=== PATIENT | male | born 1930 | race Caucasian/White ===

== ENCOUNTER → 2016-10-30 | Outpatient (CLI) | payer MEDICARE, BC ==
[~2016-10-30] MED LIST: REGADENOSON 0.4 MG/5 ML SYRINGE ONE
== END | disposition home or self-care (01) ==
LOC: CFH 08:53
PROVIDERS: ATTEND Internal Medicine Cardiovascular Disease
DX: Z01.810 Encounter for preprocedural cardiovascular examination (principal); Z95.1 Presence of aortocoronary bypass graft; I25.10 Atherosclerotic heart disease of native coronary artery without angina pectoris; I25.89 Other forms of chronic ischemic heart disease
CPT/HCPCS: 78452; 93017; A9502; J2785

== ENCOUNTER 2018-09-12 21:27 | Inpatient (IN) | payer MEDICARE, BC ==
[~2018-09-12] VITALS: Ht 172.7 cm; Wt 82.7 kg
[~2018-09-12 21:27] MED LIST changes: +AMOX1TAB12 PO; +ASPI-650 PO; +ATOR40TA78 PO; +CARV6.2512 PO; +DOXY100T PO; +DULO30CA2 PO; +ESOM40CA PO; +FURO10SO PO; +GABA300C10 PO; +GLIM1TAB2 PO; +GUAI200T3 PO; +HYDR-3622 PO; +LISI5TAB7 PO; +LOPE2CAP PO; +METF500T17 PO; +METO50TA82 PO; +OSEL75CA PO; +POTA20PA25 PO; -REGADENOSON 0.4 MG/5 ML SYRINGE ONE; +SPIR25TA PO; +TRIA0.25 PO
[2018-09-12 22:18] LABS: BASOPHILS # (AUTO) 0.04 x10^3/uL (0-0.1); BASOPHILS % (AUTO) 0 % (0-1); EOSINOPHILS # (AUTO) 0.19 x10^3/uL (0-0.4); EOSINOPHILS % (AUTO) 2 % (1-7); LYMPHOCYTES # (AUTO) 1.05 x10^3/uL (1-3.4); LYMPHOCYTES % (AUTO) 12 % (22-44); MD NO; MEAN CORPUSCULAR HEMOGLOBIN 32.9 pg (27.5-34.5); MEAN CORPUSCULAR HGB CONC 34.1 g/dL (33.2-36.2); MEAN CORPUSCULAR VOLUME 96.5 fL (81-97); MEAN PLATELET VOLUME 9.4 fL (7.4-10.4); MONOCYTES # (AUTO) 0.52 x10^3/uL (0.2-0.8); MONOCYTES % (AUTO) 6 % (2-9); NEUTROPHILS # (AUTO) 7.27 x10^3/uL (1.8-6.8); NEUTROPHILS % (AUTO) 80 % (42-75); PLATELET COUNT 156 x10^3/uL (130-400); RED BLOOD COUNT 3.59 x10^6/uL (4.38-5.82); RED CELL DISTRIBUTION WIDTH 13.7 % (9.4-14.8)
[2018-09-12] MEDS ORDERED: PARO30TA3 PO (22:23)
[2018-09-12] MEDS ORDERED: TRAZ-137 PO (22:24)
[2018-09-12 22:25] LABS: ALANINE AMINOTRANSFERASE 22 U/L (12-78); ALBUMIN 3.8 g/dL (3.4-5.0); ANION GAP 6 mmol/L (5-15); CALCIUM 8.3 mg/dL (8.5-10.1); CHLORIDE 100 mmol/L (98-107); CREATININE 2.71 mg/dL (0.7-1.3)
--- NOTE | 2018-09-12 22:25 | NUR ---
PT WITH LOW BP. PT DENIED ANY CHEST PAIN, DIZZINESS, NAUSEA AT THIS TIME. IV STARTED. PT IN HOSPITAL GOWN. LABS DRAWN OFF IV START.
[2018-09-12 22:29] LABS: ALKALINE PHOSPHATASE 113 U/L (45-117); BILIRUBIN,TOTAL 0.6 mg/dL (0.2-1.0); TOTAL PROTEIN 6.7 g/dL (6.4-8.2); TROPONIN I < 0.015 ng/mL (0.000-0.045)
[2018-09-12] MEDS ORDERED: AZITHROMYCIN 500 MG in SODIUM CHLORIDE 0.9% 250 ML IV ONE (22:30)
[2018-09-12] MEDS ORDERED: CEFTRIAXONE PMX 1GM/50ML 50 ML IV ONE (22:30)
[2018-09-12] MEDS ORDERED: CEFTRIAXONE PMX 1GM/50ML 50 ML ONE (22:35)
[2018-09-12 22:38] LABS: MICROSCOPIC NOT IND
[2018-09-12 22:45] LABS: CULTURE INDICATED? NO
--- NOTE | 2018-09-12 22:50 | NUR ---
BLOOD CULTURES DRAWN X2. ORDERED ABX STARTED. ORDERED FLUIDS INFUSING PER ERP REQUEST. WILL CONTINUE TO MONITOR.
[2018-09-12] MEDS ORDERED: SODIUM CHLORIDE 0.9% 1,000ML IVBOLUS ONE (23:00)
[2018-09-12] MEDS ORDERED: GLUCAGON 1 MG ONE (23:32)
--- NOTE | 2018-09-12 23:40 | NUR ---
PT STATED HE WOULD NOT BE ABLE TO VOID WITH URINAL LAYING IN BED. ASSISTED PT OUT OF BED TO VOID WITH URINAL. PT REQUIRED TWO PERSON ASSIST TO HELP HIM BALANCE WHILE STANDING. PT BECAME NAUSEATED AND VOMITED. PT PLACED BACK IN BED, BILAT BEDRAILS UP. PT MEDICATED WITH ORDERED MEDS FOR BP. PT DAUGHTER AT BEDSIDE. WILL CONTINUE TO MONITOR.
[2018-09-12] MEDS ORDERED: HYDROCORTISONE 100 MG INJ. IVPush ONE (23:45)
[2018-09-13] MEDS ORDERED: GLUCAGON 1 MG IVPush ONE
--- NOTE | 2018-09-13 00:35 | NUR ---
PLEASE CALL [facility] FOR ANY INFORMATION [phone]
[2018-09-13] MEDS ORDERED: ONDANSETRON 2MG/ML, 2ML IVPush PRN (01:00)
[2018-09-13] MEDS ORDERED: NOREPINEPHRINE 4 MG in SODIUM CHLORIDE 0.9% 246 ML IV PRN (01:00)
--- NOTE | 2018-09-13 02:00 | NUR ---
ORDERED PRESSER DRIP STARTED. PT MAP 57. PER HOSPITALIST, TARGET MAP TO BE AT LEAST 60. PT RESTING CALMLY IN BED. NO REPORT OF PAIN.
--- NOTE | 2018-09-13 02:39 | NUR ---
PT MOVED TO TR02. PT BP IMPROVING. PT PLACED ON HOSPITAL BED.
--- NOTE | 2018-09-13 03:12 | NUR ---
PT RESTING CALMLY IN BED. PT TOLERATING IV INFUSION OF PRESSOR. IV SITE WITHOUT ANY REDNESS NOR PAIN. WILL CONTINUE TO MONITOR.
--- NOTE | 2018-09-13 03:13 | NUR ---
PT LEVO TURNED UP TO 3MCG/HR. PT MAP 59.
[2018-09-13] MEDS ORDERED: SODIUM CHLORIDE 0.9% 1,000 ML IV SCH (03:30)
--- NOTE | 2018-09-13 04:31 | NUR ---
PT DOZING OFF AND ON IN BED. PT ABLE TO USE URINAL IN BED. NO C/O PAIN FROM PT AT THIS TIME. PT IV PATENT WITHOUT S/S OF INFULTRATION. WILL CONTINUE TO MONITOR. PT LEVO TURNED DOWN TO 1MCG/HR.
--- NOTE | 2018-09-13 05:31 | NUR ---
PT RESTING WITH EYES CLOSED. LEVO AT 2MCG/HR, MAP AT 57. NAD AT THIS TIME. PT O2 TURNED OFF, PT SATING 98% ON RA.
[2018-09-13] MEDS ORDERED: ASPIRIN 325 MG TABLET EC ONE (05:57)
[2018-09-13] MEDS ORDERED: ONDANSETRON 2MG/ML, 2ML ONE (05:57)
[2018-09-13 06:03] LABS: TROPONIN I < 0.015 ng/mL (0.000-0.045)
[2018-09-13] MEDS: ASPIRIN 325 MG TABLET EC PO SCH (06:04)
--- NOTE | 2018-09-13 06:10 | NUR ---
PT C/O NAUSEA. LAB CAME TO DRAW BLOOD. PT MEDICATD ORDERED FOR NAUSEA. PT ABLE TO TAKE AM MEDS PO. NO C/O PAIN NOR DIZZINESS.
--- NOTE | 2018-09-13 07:02 | NUR ---
BEDSIDE REPORT TO JEFF MAYEN.
--- NOTE | 2018-09-13 07:32 | NUR ---
REC BS REPORT PT RESTING AT THIS TIME VITAL APPEAR TO BE TRENDIGN TO A NORMAL RANGE LEVO CURRENTLY RUNING A 4 PT AWAKES TO VERBAL CONTINUING TO MONITOR
--- NOTE | 2018-09-13 07:50 | NUR ---
IV SITES CHECKED NO ISSUSES NOTED IV INFUSING WELL
--- NOTE | 2018-09-13 09:26 | NUR ---
LEVO SPREAD SHEET UPDATED TO SHOW CURRENT
[2018-09-13] MEDS ORDERED: LEVOFLOXACIN/PMX 750MG/150ML 150 ML IV SCH (10:00)
--- NOTE | 2018-09-13 10:25 | NUR ---
CONTACTED DR MACIEL RE PT IV ACCESS RELATED TO LEVO INFUSION REVIEWED VS AND PT HX HE WILL ORDER A PICC LINE
[2018-09-13] MEDS: INSULIN LISPRO 100 UNITS/ML, PEN SQ-INSULIN SCH ×4 (11:00→20:46)
--- NOTE | 2018-09-13 11:00 | NUR ---
IR CALLED RE PICC ONE PROCEDURE AHEAD OF THIS THEN WILL COME AND GET PT
--- NOTE | 2018-09-13 11:41 | NUR ---
SHEETS AND SUNILN CHGD PT ACHIEVED A MAP OF 90 DECREASED LEVO TO 3
--- NOTE | 2018-09-13 12:33 | NUR ---
ABNER MEJIA IN T2 SETTING UP FOR PICC
[2018-09-13] MEDS ORDERED: LEVOFLOXACIN/PMX 750MG/150ML 150 ML ONE (12:41)
--- NOTE | 2018-09-13 13:07 | NUR ---
PICC INSERTION COMPLETE WAITING ON XR
--- NOTE | 2018-09-13 13:33 | NUR ---
PICC COMPLETE CHANGED LEVO TO PICC
--- NOTE | 2018-09-13 14:55 | NUR ---
U/O = 200 mL clear yellow urine. Suger free ice cream requested from dietary per patient request. No other needs at this time.
--- NOTE | 2018-09-13 15:24 | NUR ---
HOSPITALIST PAGED AT THIS TIME TO CLARIFY DIETARY ORDER. PT RESTIN IN BED.
[2018-09-13] MEDS ORDERED: CEFTRIAXONE PMX 1GM/50ML 50 ML IV SCH (15:30)
[2018-09-13] MEDS ORDERED: DOXYCYCLINE 100 MG in DEXTROSE 5% 250 ML IV SCH (15:30)
[2018-09-13] MEDS ORDERED: TRAZODONE 100MG TABLET PO PRN (15:30)
[2018-09-13] MEDS: GABAPENTIN 300 MG CAPSULE PO SCH ×2 (16:00→20:45)
[2018-09-13] MEDS ORDERED: GABAPENTIN 300 MG CAPSULE ONE (16:02)
--- NOTE | 2018-09-13 16:13 | NUR ---
PT PROVIDED SNACK AND TOLERATED WELL. PT BG 99 AT THIS TIME. NOREPI TITRATED DOWN PATIENT HAS SUSTAINED MAP ABOV 80S FOR OVER 3+ HOURS.
--- NOTE | 2018-09-13 18:01 | NUR ---
PT TRANSFERED TO CCU WITHOUT COMPLICATIONS. BEDSIDE CHECK OF CENTAL LINE AND PRESSOR RATE.
[2018-09-13] MEDS: ATORVASTATIN 40 MG TABLET PO SCH (20:45)
[2018-09-14 04:00] VITALS: BP 99/66
[2018-09-14 05:04] LABS: BASOPHILS # (AUTO) 0.04 x10^3/uL (0-0.1); BASOPHILS % (AUTO) 1 % (0-1); EOSINOPHILS # (AUTO) 0.07 x10^3/uL (0-0.4); EOSINOPHILS % (AUTO) 1 % (1-7); LYMPHOCYTES # (AUTO) 0.99 x10^3/uL (1-3.4); LYMPHOCYTES % (AUTO) 17 % (22-44); MD NO; MEAN CORPUSCULAR HEMOGLOBIN 33.4 pg (27.5-34.5); MEAN CORPUSCULAR HGB CONC 34.7 g/dL (33.2-36.2); MEAN CORPUSCULAR VOLUME 96.2 fL (81-97); MEAN PLATELET VOLUME 9.6 fL (7.4-10.4); MONOCYTES # (AUTO) 0.45 x10^3/uL (0.2-0.8); MONOCYTES % (AUTO) 8 % (2-9); NEUTROPHILS # (AUTO) 4.17 x10^3/uL (1.8-6.8); NEUTROPHILS % (AUTO) 73 % (42-75); PLATELET COUNT 128 x10^3/uL (130-400); RED BLOOD COUNT 3.17 x10^6/uL (4.38-5.82); RED CELL DISTRIBUTION WIDTH 13.4 % (9.4-14.8)
[2018-09-14 05:11] LABS: ANION GAP 3 mmol/L (5-15); CALCIUM 8.4 mg/dL (8.5-10.1); CHLORIDE 113 mmol/L (98-107); CREATININE 1.32 mg/dL (0.7-1.3)
[2018-09-14] MEDS: ASPIRIN 325 MG TABLET EC PO SCH (06:29)
[2018-09-14] MEDS: INSULIN LISPRO 100 UNITS/ML, PEN SQ-INSULIN SCH ×5 (07:00→21:34)
[2018-09-14] MEDS: GABAPENTIN 300 MG CAPSULE PO SCH ×3 (07:49→21:33)
[2018-09-14] MEDS: PAROXETINE 20 MG TABLET PO SCH (07:49)
[2018-09-14 10:00] VITALS: BP 134/81
[2018-09-14 14:04] VITALS: BP 120/69
[2018-09-14 19:19] VITALS: BP 131/72
[2018-09-14] MEDS: ATORVASTATIN 40 MG TABLET PO SCH (21:33)
[2018-09-15 01:04] VITALS: BP 111/61
[2018-09-15 06:45] VITALS: BP 104/59
[2018-09-15] MEDS: ASPIRIN 325 MG TABLET EC PO SCH (06:47)
[2018-09-15] MEDS: PAROXETINE 20 MG TABLET PO SCH (07:57)
[2018-09-15] MEDS: GABAPENTIN 300 MG CAPSULE PO SCH ×3 (07:57→21:12)
[2018-09-15] MEDS: INSULIN LISPRO 100 UNITS/ML, PEN SQ-INSULIN SCH ×4 (07:58→21:18)
[2018-09-15 12:07] VITALS: BP 120/74
[2018-09-15 18:45] VITALS: BP 131/65
[2018-09-15] MEDS: ATORVASTATIN 40 MG TABLET PO SCH (21:12)
[2018-09-16 00:29] VITALS: BP 100/60
[2018-09-16 04:55] LABS: BASOPHILS # (AUTO) 0.03 x10^3/uL (0-0.1); BASOPHILS % (AUTO) 1 % (0-1); EOSINOPHILS # (AUTO) 0.12 x10^3/uL (0-0.4); EOSINOPHILS % (AUTO) 2 % (1-7); LYMPHOCYTES # (AUTO) 1.15 x10^3/uL (1-3.4); LYMPHOCYTES % (AUTO) 17 % (22-44); MD NO; MEAN CORPUSCULAR HEMOGLOBIN 33.2 pg (27.5-34.5); MEAN CORPUSCULAR HGB CONC 34.6 g/dL (33.2-36.2); MEAN PLATELET VOLUME 9.5 fL (7.4-10.4); MONOCYTES # (AUTO) 0.55 x10^3/uL (0.2-0.8); MONOCYTES % (AUTO) 8 % (2-9); NEUTROPHILS # (AUTO) 4.77 x10^3/uL (1.8-6.8); NEUTROPHILS % (AUTO) 72 % (42-75); PLATELET COUNT 138 x10^3/uL (130-400); RED BLOOD COUNT 3.28 x10^6/uL (4.38-5.82); RED CELL DISTRIBUTION WIDTH 13.8 % (9.4-14.8)
[2018-09-16 05:01] LABS: CALCIUM 8.5 mg/dL (8.5-10.1); CHLORIDE 108 mmol/L (98-107)
[2018-09-16 05:06] LABS: ALANINE AMINOTRANSFERASE 14 U/L (12-78); ALBUMIN 3.1 g/dL (3.4-5.0); ALKALINE PHOSPHATASE 78 U/L (45-117); ANION GAP 7 mmol/L (5-15); BILIRUBIN,TOTAL 0.8 mg/dL (0.2-1.0); CREATININE 1.03 mg/dL (0.7-1.3); TOTAL PROTEIN 5.6 g/dL (6.4-8.2)
[2018-09-16] MEDS: ASPIRIN 325 MG TABLET EC PO SCH (05:44)
[2018-09-16 06:51] VITALS: BP 103/55
[2018-09-16] MEDS: INSULIN LISPRO 100 UNITS/ML, PEN SQ-INSULIN SCH ×2 (07:00→11:43)
[2018-09-16] MEDS ORDERED: GLIMEPIRIDE 1 MG TABLET PO SCH (08:00)
[2018-09-16] MEDS: GABAPENTIN 300 MG CAPSULE PO SCH (08:36)
[2018-09-16] MEDS: PAROXETINE 20 MG TABLET PO SCH (08:36)
[2018-09-16] MEDS ORDERED: LISI5TAB7 PO (11:33)
[2018-09-16] MEDS ORDERED: CARV3.1212 PO (11:33)
== END 2018-09-16 13:45 | disposition home health service (06) | DRG 917 ==
LOC: ED 22:35 → EDIP 23:04 → CCU 09-13 17:53 → 5SO 09-14 09:52 → DCLOUNGE 09-16 13:22
PROVIDERS: ADMIT Internal Medicine; ATTEND Internal Medicine
PROC: 02HV33Z Insertion of Infusion Device into Superior Vena Cava, Percutaneous Approach (ICD-10-PCS; principal; 2018-09-13)
PROC: B548ZZA Ultrasonography of Superior Vena Cava, Guidance (ICD-10-PCS; 2018-09-13)
DX: T44.7X1A Poisoning by beta-adrenoreceptor antagonists, accidental (unintentional), initial encounter (principal); G93.41 Metabolic encephalopathy; N17.0 Acute kidney failure with tubular necrosis; J15.9 Unspecified bacterial pneumonia; I50.22 Chronic systolic (congestive) heart failure; T46.4X1A Poisoning by angiotensin-converting-enzyme inhibitors, accidental (unintentional), initial encounter; E78.5 Hyperlipidemia, unspecified; E86.0 Dehydration; Z96.659 Presence of unspecified artificial knee joint; T44.7X5A Adverse effect of beta-adrenoreceptor antagonists, initial encounter; T46.4X5A Adverse effect of angiotensin-converting-enzyme inhibitors, initial encounter; I25.10 Atherosclerotic heart disease of native coronary artery without angina pectoris; I95.2 Hypotension due to drugs; E86.1 Hypovolemia; E11.42 Type 2 diabetes mellitus with diabetic polyneuropathy; I11.0 Hypertensive heart disease with heart failure; I25.2 Old myocardial infarction; Z79.82 Long term (current) use of aspirin; Y92.89 Other specified places as the place of occurrence of the external cause; Z87.01 Personal history of pneumonia (recurrent); Z79.84 Long term (current) use of oral hypoglycemic drugs; Z79.899 Other long term (current) drug therapy; Z90.49 Acquired absence of other specified parts of digestive tract; Z95.0 Presence of cardiac pacemaker; Z95.1 Presence of aortocoronary bypass graft
CPT/HCPCS: 36415; 36573; 71045; 80048; 80053; 81003; 82533; 82962; 83605; 83880; 84145; 84484; 85025; 87040; 87081; 93005; 96365; G0378; J0456; J0696; J1956; J2405; C1751; J1610; J1720; J1815; J7030; J7050

== ENCOUNTER → 2018-10-31 | Outpatient (CLI) | payer MEDICARE, BC ==
[~2018-10-31] MED LIST changes: +CARV3.1212 PO; -OSEL75CA PO; +OSEL75CA26 PO; +PARO30TA3 PO; +TRAZ-137 PO
[2018-10-31 16:03] LABS: ANION GAP 7 mmol/L (5-15); CALCIUM 8.9 mg/dL (8.5-10.1); CHLORIDE 107 mmol/L (98-107); CREATININE 1.12 mg/dL (0.7-1.3)
== END | disposition home or self-care (01) ==
LOC: CFH 12:54
PROVIDERS: ATTEND Internal Medicine Cardiovascular Disease
DX: I50.32 Chronic diastolic (congestive) heart failure (principal)
CPT/HCPCS: 36415; 80048; 83880

== ENCOUNTER 2019-01-20 12:33 | Outpatient (CLI) | payer MEDICARE, BC | END 2019-01-20 23:59 | disposition home or self-care (01) | LOC: CFH 12:33 | PROVIDERS: ATTEND Internal Medicine Cardiovascular Disease | DX: I34.0 Nonrheumatic mitral (valve) insufficiency (principal); I25.5 Ischemic cardiomyopathy; E11.9 Type 2 diabetes mellitus without complications; Z95.1 Presence of aortocoronary bypass graft | CPT/HCPCS: 93306 ==

== ENCOUNTER 2020-01-25 11:04 | Outpatient (CLI) | payer MEDICARE, BC ==
[~2020-01-25 11:04] MED LIST changes: -GLIM1TAB2 PO; +GLIM1TAB7 PO; -GUAI200T3 PO; +GUAI200T37 PO; -TRAZ-137 PO; +TRAZ-175 PO
== END 2020-01-25 23:59 | disposition home or self-care (01) ==
LOC: CFH 11:04
PROVIDERS: ATTEND Registered Nurse
DX: I08.2 Rheumatic disorders of both aortic and tricuspid valves (principal); I25.5 Ischemic cardiomyopathy
CPT/HCPCS: 93306